=== PATIENT | female | born 1950 | race Caucasian/White ===

== ENCOUNTER 2022-12-03 12:06 | Emergency (ER) | payer MEDICARE, OTHER ==
[2022-12-03 13:06] LABS: CHLORIDE,CL 101 mmol/L (98-107); SODIUM,NA 139 mmol/L (136-145)
[2022-12-03 13:08] LABS: ANION GAP 13.1 mmol/L (5-15); ESTIMATED GFR 59 mL/min (>=60)
== END 2022-12-03 13:55 | disposition home or self-care (01) ==
LOC: VM.ED 12:06
DX: R41.0 Disorientation, unspecified (principal); R06.02 Shortness of breath
CPT/HCPCS: 36415; 70450; 71046; 80053; 81003; 82550; 83605; 83615; 83735; 84484; 85025; 85610; 93005; 93010; 99284; 99285

== ENCOUNTER 2025-04-24 21:04 | Emergency (ER) | payer MEDICARE, OTHER | END 2025-04-24 22:44 | disposition home or self-care (01) | LOC: VM.ED 21:04 | DX: S52.502A Unspecified fracture of the lower end of left radius, initial encounter for closed fracture (principal); Z79.899 Other long term (current) drug therapy; W01.0XXA Fall on same level from slipping, tripping and stumbling without subsequent striking against object, initial encounter | CPT/HCPCS: 29125; 73110-LT; 99284-25 ==